=== PATIENT | female | born 1980 | race African-American/Black ===

== ENCOUNTER 2019-08-31 07:45 | Outpatient (CLI) | payer BC, OTHER ==
[2019-08-31 08:16] LABS: Estimated GFR-MDRD - POC Greater than 90
--- NOTE | 2019-08-31 09:10 | MRI ---
MR of the right foot with and without IV contrast INDICATION: History of palpable abnormality on the lateral aspect of the right foot since March that is quite painful to the patient. Patient is at no history of trauma or surgery to the right foot. Contrast: 20 cc of MultiHance COMPARISON: None FINDINGS: Underlying the surface marker on the lateral aspect of the right foot is a 3.5 x 1.6 cm T2 hyperintense, T1 hypointense peripherally enhancing cystic lesion. This is consistent with a periarticular ganglion. The neck of the ganglion is difficult to discern to point out the origin of t he ganglion. This may reflect a peritendinous ganglion or potentially a ganglion originating from the cuboid fifth metatarsal articulation or possibly the dorsal aspect of the fourth metatarsal cuboi d articulation. There is a small 7 mm cystic lesion that likely communicates with this more superficial soft tissue ganglion that projects toward the fourth metatarsal base. Additional smaller ganglion is seen dorsal to the third digit interspace measuring 7 mm image 4 series 6. Lisfranc ligament is intact. No acute fracture is demonstrated. The visualized peroneal tendons appear intact. The medial flexor tendons are intact. There is some mild tendinosis of the Achilles tendon with mild Achilles paratenonitis. The plantar fascia appears intact. Sinus Tarsi appears within normal diaz its. No additional regions of abnormal enhancement is demonstrated. IMPRESSION: 1. Superficial soft tissue ganglion cyst seen lateral and dorsal to the fifth metatarsal. This possib ly may originate from the fifth metatarsal cuboid articulation or possibly from a ganglion originating from the fourth metatarsal cuboid articulation. Additional smaller ganglion is seen withi n the proximal dorsal aspect of the third digit interspace. 2. Mild Achilles tendinosis and paratenonitis.
== END 2019-08-31 07:46 | disposition home or self-care (01) ==
LOC: BICMRI 07:45
PROVIDERS: ATTEND Podiatrist Foot & Ankle Surgery
DX: M67.471 Ganglion, right ankle and foot (principal); M65.9 Synovitis and tenosynovitis, unspecified
CPT/HCPCS: 82565